=== PATIENT | male | born 2000 | race Caucasian/White ===

== ENCOUNTER 2020-11-24 22:11 | Emergency (ER) | payer BC, MEDICAID ==
[~2020-11-24] VITALS: Ht 185.5 cm; Wt 130.6 kg
[~2020-11-24 22:11] MED LIST: BETA50CR5 TP; MUPI15CR10 TP
--- NOTE | 2020-11-24 23:00 | ED Lower Extremity ---
General Chief Complaint: Lower Extremity Stated Complaint: L FOOT INJ/PAIN Source: patient Exam Limitations: no limitations History of Present Illness Date Seen by Provider: Nov 24, 2020 Time Seen by Provider: 22:35 Initial Comments 81Here with report of left foot pain lateral aspect near the base of the fifth metatarsal. 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 He thinks he stepped down on his foot wrong and he felt a pop. Pain after that. States it is 4 out of 10 and tolerable. Denies other injury or concerns. Onset: this evening Severity: moderate Method of Injury: twisted Modifying Factors: Improves With Immobilization; Worse With Movement; Improves With Rest Allergies and Home Medications Allergies Coded Allergies: No Known Allergies (Verified Allergy, Unknown, 02/05/07) Home Medications Betamet Diprop/Prop Gly 50 Gm Cream.gm., 5 GM TP BID Prescribed by: GRECIA ADAMS on 06/16/15 142 Mupirocin Calcium 15 Gm Cream..g., 15 GM TP BID Prescribed by: GRECIA ADAMS on 06/16/15 1428 Patient Home Medication List Home Medication List Reviewed: Yes Review of Systems Constitutional: No chills, No fever Respiratory: no symptoms reported Cardiovascular: no symptoms reported Musculoskeletal: see HPI, joint pain; No muscle pain Skin: no symptoms reported Past Ywrwxhq-Cjxzkm-Chqgfq Hx Past Med/Social Hx: Reviewed Nursing Past Med/Soc Hx Patient Social History Alcohol Use: Occasionally Uses Recreational Drug Use: No Smoking Status: Never a Smoker Recent Foreign Travel: No Contact w/Someone Who Travel: No Immunizations Up To Date PED Vaccines UTD: Yes Seasonal Allergies Seasonal Allergies: No Past Medical History Surgeries: Yes (TUBES AND ATTEMPT TO FIX TYMPANIC MEMBRANE) Respiratory: No Cardiac: No Neurological: No Reproductive Disorders: No Gastrointestinal: No Musculoskeletal: No Endocrine: No Cancer: No Psychosocial: No Integumentary: Yes (right calf area of erythema) Recent Skin Changes Blood Disorders: No Family Medical History Reviewed Nursing Family Hx Physical Exam Vital Signs Capillary Refill : Height, Weight, BMI Height: 6'0" Weight: 220lbs. oz. 99.732775jz; BMI Method:Stated General Appearance: WD/WN, no apparent distress Cardiovascular: regular rate, rhythm, no murmur Respiratory: lungs clear, normal breath sounds, no respiratory distress Feet: left foot pain, left foot soft tissue tenderness, left foot other (No obvious deformity no obvious deformity or erythema. No bruising noted. Distal pulses and cap refill intact.) Neurologic/Tendon: normal sensation, normal motor functions Neurologic/Psychiatric: alert, oriented x 3 Progress/Results/Core Measures Results/Orders My Orders Orders - PIO BRIDGES MD Foot, Left, 3 Views (11/24/20 22:35) Progress Progress Note : Progress Note Seen and evaluated. X-ray left foot. This does show nondisplaced fracture of the base of the fifth metatarsal. Walking boot applied over Josh wrap. Crutches given. Patient states that he will follow-up with Dr. TOUSSAINT per his preference. I will send a copy of the chart to him and instruct the patient to call his office on Friday. Discharged home with return precautions. Patient verbalized understanding of instructions and agreement with plan. Declined pain medicine currently and states that he feels like ibuprofen and/or Tylenol will work. Diagnostic Imaging Diagonstic Imaging: Xray Plain Films/CT/US/NM/MRI: other Comments Left foot 3 view shows nondisplaced fracture at the base of the fifth metatarsal. Reviewed: Reviewed by Me Departure Impression Primary Impression: Nondisplaced fracture of fifth left metatarsal bone Qualified Codes: S92.355A - Nondisplaced fracture of fifth metatarsal bone, left foot, initial encounter for closed fracture Disposition: 01 HOME, SELF-CARE Condition: Stable Departure-Patient Inst. Decision time for Depature: 23:01 Referrals: TRAY UGARTE MD (PCP/Family) Primary Care Physician NOLA TOUSSAINT MD Patient Instructions: Foot Fracture ED, Walking Boot Add. Discharge Instructions: All discharge instructions reviewed with patient and/or family. Voiced understanding. Keep walking boot on anytime while moving about. Do not touch your foot to the floor without walking boot on. Use crutches as needed. Elevate the foot and use ice packs to area of concern 20 minutes/h as needed to reduce swelling and pain. You may use Josh wrap as needed. Call Dr. Toussaint's office on Friday for appointment. You may take ibuprofen 800 mg every 8 hours as needed for pain. You may also take Tylenol/acetaminophen 1000 mg every 8 hours as needed for pain. Return for worse pain, swelling, numbness or other concerns as needed. Copy Copies To 1: NOLA TOUSSAINT MD, TIMOTHY D MD Nov 24, 2020 23:00
[2020-11-24 23:20] VITALS: BP 145/98
--- NOTE | 2020-11-25 06:20 | Diagnostic Imaging Report ---
INDICATION: foot pain. TECHNIQUE: 3 views of the left foot CORRELATION STUDY: 01/23/2015 FINDINGS: There is a transversely oriented, nondisplaced fracture at the proximal shaft of the 5th metatarsal. Alignment is anatomic. The remaining osseous structures otherwise intact. Mild soft tissue edema along the lateral aspect of the foot. IMPRESSION: 1. Nondisplaced fracture involving the proximal 5th metatarsal shaft. Dictated by: Dictated on workstation # [id number]
== END 2020-11-24 23:21 | disposition home or self-care (01) ==
LOC: EDUNIT# 22:11 → ER 22:14
DX: S92.355A Nondisplaced fracture of fifth metatarsal bone, left foot, initial encounter for closed fracture (principal); X50.1XXA Overexertion from prolonged static or awkward postures, initial encounter
CPT/HCPCS: 73630

== ENCOUNTER 2021-02-01 21:46 | Emergency (ER) | payer BC ==
[~2021-02-01] VITALS: Ht 185.5 cm; Wt 127.0 kg
[2021-02-01] MEDS ORDERED: ACETAMINOPHEN 500 MG TAB (TYLENOL) ONE (22:18)
[2021-02-01] MEDS ORDERED: IBUPROFEN 800 MG (MOTRIN) TAB PO ONE ×2 (22:18→22:30)
[2021-02-01] MEDS ORDERED: ACETAMINOPHEN 500 MG TAB (TYLENOL) PO ONE (22:30)
[2021-02-01] MEDS ORDERED: BENZ100C18 PO (22:48)
[2021-02-01] MEDS ORDERED: GUAI1TBM19 PO (22:48)
--- NOTE | 2021-02-01 22:49 | ED Cough/URI ---
General Chief Complaint: Cough/Cold/Flu Symptoms Stated Complaint: COUGH / CONGESTION Nursing Triage Note: PT AMBULATES TO ROOM #9 WITH C/O COUGH, CONGESTION, ET LOSS OF TASTE. REPORTS LOSS OF TASTE ET NASAL CONGESTION THAT BEGAN ON 01/29/21. REPORTS 2HRS CARGO ROUTER WHILE SITTING ON THE COUCH, HE BEGAN TO EXPERIENCE DRY COUGH. REPORTS PERSISTANT COUGH THAT IS RELIEVED BY COUGH DROPS. DENIES FEVER WITH FEVER OF 100.7 NOTED UPON TRIAGE. REPORTS COVID EXPOSURE X3WKS AGO. A&OX4. Sepsis Screen: Possible Severe Sepsis Risk Source: patient History of Present Illness Date Seen by Provider: Feb 01, 2021 Time Seen by Provider: 22:10 Initial Comments PT ARRIVES VIA POV FROM HOME C/O NON-PRODUCTIVE COUGH THAT BEGAN 2 HOURS AGO, WHILE SITTING ON COUCH--RELIEVED BY COUGH DROPS NO SHORTNESS OF BREATH OR PAIN WITH BREATHING NO KNOWN FEVER--HOWEVER, TEMPT IS 100.7 ON ARRIVAL HERE STATES HE STARTED HAVING NASAL CONGESTION AND LOSS OF SMELL ON Friday01/29/21 HAS ALSO HAD A HEADACHE SINCE FRIDAY NO SORE THROAT NO BODY ACHES NO NAUSEA/VOMITING/DIARRHEA. STATES HE WAS EXPOSED TO COVID ABOUT 2 WEEKS AGO. PT STATES HE IS LIVING BY HIMSELF IN A FRIEND'S [place] PT DOES WORK, NO HISTORY OF RESPIRATORY PROBLEMS OR CHRONIC ILLNESSES PCP: DR. UGARTE Allergies and Home Medications Allergies Coded Allergies: No Known Allergies (Verified Allergy, Unknown, 02/05/07) Home Medications Benzonatate 100 Mg Capsule, 200 MG PO TID Prescribed by: ESTHER BENTLEY on 02/01/212247 Guaifenesin/Dextromethorphan 1 Each Tbmp.12hr, 1 EACH PO BID Prescribed by: ESTHER BENTLEY on 02/01/212247 Patient Home Medication List Home Medication List Reviewed: Yes Review of Systems Review of Systems Constitutional: see HPI EENTM: see HPI, nose congestion Respiratory: see HPI, cough; No phlegm, No short of breath, No wheezing Cardiovascular: no symptoms reported; No chest pain Gastrointestinal: no symptoms reported; No abdominal pain, No diarrhea, No loss of appetite, No nausea, No vomiting Genitourinary: no symptoms reported Musculoskeletal: no symptoms reported Skin: no symptoms reported Psychiatric/Neurological: See HPI, Headache Hematologic/Lymphatic: No Symptoms Reported Immunological/Allergic: no symptoms reported Past Isrjdvf-Dkcujp-Okxrja Hx Past Med/Social Hx: Reviewed and Corrections made Patient Social History Alcohol Use: Denies Use Drug of Choice: DENIES Smoking Status: Never a Smoker 2nd Hand Smoke Exposure: No Recent Infectious Disease Expo: No (3WKS AGO) Recent Hopitalizations: Yes (FOR EAR SURGERIES) Immunizations Up To Date PED Vaccines UTD: Yes Seasonal Allergies Seasonal Allergies: No Past Medical History Surgeries: Yes (BMT'S AND ATTEMPT TO FIX TYMPANIC MEMBRANE; LEFT FOOT SURGERY) Ear Surgery, Orthopedic Respiratory: No Cardiac: No Neurological: No Reproductive Disorders: No Gastrointestinal: No Musculoskeletal: Yes (LEFT FOOT SURGERY) Endocrine: No HEENT: Yes (BMT'S AND TYMPANIC MEMBRANE SURGERY) Chronic Ear Infection Cancer: No Psychosocial: No Integumentary: No Blood Disorders: No Physical Exam Vital Signs - First Documented 02/01/21 22:00 Temp 38.2 Pulse 130 Resp 17 B/P (MAP) 139/93 (108) Pulse Ox 98 O2 Delivery Room Air Capillary Refill : Less Than 3 Seconds Height: 6'0" Weight: 220lbs. oz. 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, no motor/sensory deficits, alert, normal mood/affect, oriented x 3 Skin: normal color, warm/dry Progress/Results/Core Measures Suspected Sepsis Recent Fever Within 48 Hours: Yes Infection Criteria Present: Suspected New Infection New/Unexplained Altered Menta: No Sepsis Screen: Possible Severe Sepsis Risk SIRS Temperature: Pulse: 130 Respiratory Rate: 17 Blood Pressure 139 /93 Mean: 108 Results/Orders Lab Results Laboratory Tests Test 02/01/21 22:10 Range/Units Coronavirus 2019 (ELIAS) Positive H Negative Micro Results Microbiology 02/01/21 Influenza Types A,B Antigen (ROMINA) - Final, Complete My Orders Orders - ESTHER BENTLEY DO Influenza A And B Antigens (02/01/21 22:08) Coronavirus Sars-Cov-2 So 2019 (02/01/21 22:08) Covid 19 Inhouse Test (02/01/21 22:08) Acetaminophen Tablet (Tylenol Tablet) (02/01/21 22:30) Ibuprofen Tablet (Motrin Tablet) (02/01/21 22:30) Ibuprofen Tablet (Motrin Tablet) (02/01/21 22:18) Acetaminophen Tablet (Tylenol Tablet) (02/01/21 22:18) Medications Given in ED Current Medications Medications Dose Ordered Sig/[place] Route Start Time Stop Time Status Last Admin Dose Admin Acetaminophen 1,000 mg ONCE ONCE PO 02/01/21 22:30 02/01/21 22:31 DC 02/01/21 22:27 1,000 MG Ibuprofen 800 mg ONCE ONCE PO 02/01/21 22:30 02/01/21 22:31 DC 02/01/21 22:26 800 MG Vital Signs/I&O 02/01/21 02/01/21 02/01/21 02/01/21 22:00 22:17 22:26 22:27 Temp 38.2 38.2 38.2 Pulse 130 Resp 17 B/P (MAP) 139/93 (108) Pulse Ox 98 O2 Delivery Room Air Room Air 02/01/21 23:00 Temp 38.6 Pulse 126 Resp 16 B/P (MAP) 125/86 (108) Pulse Ox 99 O2 Delivery Room Air Capillary Refill : Less Than 3 Seconds Blood Pressure Mean: 108 Progress Note : Progress Note PLACED IN ISOLATION ROOM PPE WORN AT ALL TIMES COVID-19 TESTING PERFORMED PT ADVISED OF NEED FOR QUARANTINE NO COUGH NOTED AT ANY TIME NO DYSPNEA NO HYPOXIA Departure Impression Primary Impression: COVID-19 virus infection Disposition: HOME, SELF-CARE Condition: Stable Departure-Patient Inst. Referrals: TRAY UGARTE MD (PCP/Family) Primary Care Physician Patient Instructions: Coronavirus Disease 2019 (COVID-19) (DC), Preventing the Spread of an Infectious Disease Add. Discharge Instructions: LOTS OF CLEAR LIQUIDS TYLENOL 1 GRAM/ MOTRIN 800 MG 4 TIMES A DAY FOR COUGH AND CONGESTION QUARANTINE YOURSELF AND ALL CLOSE CONTACTS FOR 2 WEEKS OR UNTIL CLEARED BY YOUR DR OR HEALTH DEPT. All discharge instructions reviewed with patient and/or family. Voiced understanding. Scripts Guaifenesin/Dextromethorphan (Mucinex Dm ER 1,200-60 mg Tab) 1 Each Tbmp.12hr 1 EACH PO BID, #20 EA Prov: ESTHER BENTLEY DO 02/01/21 Benzonatate (TESSALON PERLES) 100 Mg Capsule 200 MG PO TID, #30 CAP Prov: ESTHER BENTLEY DO 02/01/21 Work/School Note: Work Release Form Date Seen in the Emergency Department: Feb 01, 2021 Return to Work: Feb 15, 2021 Restrictions: Need Release from Doctor ESTHER BENTLEY DO Feb 01, 2021 22:49
[2021-02-01 23:00] VITALS: BP 125/86
== END 2021-02-01 23:00 | disposition home or self-care (01) ==
LOC: EDUNIT# 21:46 → ER 21:47
DX: U07.1 COVID-19 (principal)
CPT/HCPCS: 87804; 99283; U0002; 87635